=== PATIENT | female | born 1950 | race Caucasian/White ===

== ENCOUNTER 2024-09-17 09:06 | Outpatient (OUT) | payer MEDICARE, SELFPAY ==
[2024-09-17 09:45] LABS: Basophils Absolute Auto 0.1 10^3/uL (0.0-0.1); Basophils Percent Auto 0.6 % (0.2-2.0); Eosinophils Absolute Auto 0.3 10^3/uL (0.0-0.7); Hematocrit 43.5 % (36.0-48.0); Immature Granulocytes Abs Auto 0.03 10^3/uL (0.00-0.03); Immature Granulocytes Pct Auto 0.3 % (0.0-0.5); Lymphocytes Absolute Auto 1.7 10^3/uL (1.2-3.8); Lymphocytes Percent Auto 17.8 % (20.5-60.0); Mean Corpuscular HGB Conc 34.5 g/dL (29.9-35.2); Mean Corpuscular Hemoglobin 32.4 pg (26.7-34.0); Mean Platelet Volume 11.3 fL (9.5-13.5); Monocytes Absolute Auto 0.7 10^3/uL (0.3-0.8); Monocytes Percent Auto 7.2 % (1.7-12.0); Neutrophils Absolute Auto 6.7 10^3/uL (1.4-6.5); Neutrophils Percent Auto 71.1 % (43.0-75.0); Platelet Count 299 10^3/uL (150-450); Red Blood Count 4.63 10^6/uL (4.20-5.40); Red Cell Distribution Width 12.7 % (11.0-15.0); White Blood Count 9.5 10^3/uL (4.0-11.0)
[2024-09-17 11:09] LABS: Estimated Average Glucose 103 mg/dL; Glycohemoglobin A1C 5.2 % (4.5-6.2)
[2024-09-17 11:59] LABS: Alanine Aminotransferase 23 U/L (14-59); Albumin Level 3.7 g/dL (3.4-5.0); Alkaline Phosphatase 114 U/L (46-116); Anion Gap 11.2; Aspartate Amino Transferase 26 U/L (15-37); BUN Creatinine Ratio 14.6; Bilirubin Total 0.4 mg/dL (0.2-1.0); Calcium 9.6 mg/dL (8.5-10.1); Carbon Dioxide 30.2 mmol/L (21.0-32.0); Chloride 104 mmol/L (98-107); Chol HDL Ratio 2.6; Cholesterol 170 mg/dL (<=200); Estimated GFR (African America >60 (>=60 mL/min/1.73m^2); Estimated GFR (Non-African Ame 53 (>=60 mL/min/1.73m^2); Free T3 3.57 pg/mL (2.18-3.98); Globulin 3.8 g/dL; Glucose 94 mg/dL (74-106); HDL Cholesterol 66 mg/dL (40-60); Potassium 4.4 mmol/L (3.5-5.1); Sodium 141 mmol/L (136-145); Thyroid Stimulating Hormone 4.596 uIU/mL (0.358-3.740); Total Protein 7.5 g/dL (6.4-8.2); Triglycerides 123 mg/dL (<=150); VLDL CHOLESTEROL 24.6 mg/dL
[2024-09-18 04:07] LABS: Insulin 6.7 uIU/mL (2.6-24.9)
== END 2024-09-17 09:07 | disposition home or self-care (01) ==
LOC: LAB 09:11
PROVIDERS: Family Provider Family Medicine; PCP Nurse Practitioner Family; Visit Provider Nurse Practitioner Family
DX: E78.5 Hyperlipidemia, unspecified (principal); F17.200 Nicotine dependence, unspecified, uncomplicated; R73.09 Other abnormal glucose; D64.9 Anemia, unspecified; E03.9 Hypothyroidism, unspecified; E55.9 Vitamin D deficiency, unspecified
CPT/HCPCS: 36415; 80053; 80061; 82306; 83036; 83525; 83540; 84436; 84443; 84481; 85025

== ENCOUNTER 2024-12-24 12:35 | Emergency (ER) | payer MEDICARE, SELFPAY ==
[2024-12-24 12:36] VITALS: BP 162/76; PULSE 67; TEMP 36.6; O2SAT 97; BMI 21.2
--- NOTE | 2024-12-24 12:42 | PC.NURSE ---
hematoma noted to upper LFA. pt ROM n left shoulder, elbow, wrist and hand.
--- NOTE | 2024-12-24 12:44 | XR_ITS ---
The [address] [address] Patient Name: MJ CHA MRN: [id number] date: 1950 Sex: F Assigned Patient Location: ER Current Patient Location: Accession/Order Number: [id number] Exam Date: 12/24/2024 13:46 Report Date: 12/24/2024 13:49 At the request of: SABRA RIVERA MD Procedure: XR forearm LT 2V 2 views left forearm plain film COMPARISON: None HISTORY: Left forearm injury with bruising ACUTE FINDINGS: None DEGENERATIVE CHANGE: The first carpometacarpal degenerative change. SOFT TISSUE FINDINGS: Unremarkable JOINT EFFUSION: None POSTOP CHANGES: None BONY MINERALIZATION: Adequate XR/XR forearm LT 2V IMPRESSION: No acute displaced fracture Impression dictated by: Khris Moulton M.D. 12/24/2024 1:49 PM Dictation Location: [place] [address] Electronically authenticated by: [id number] Y Date: 12/24/2024 13:49
--- NOTE | 2024-12-24 12:46 | ED.GENADUL1 ---
HPI HPI - General Adult General Chief complaint: Extremity Injury, Upper Stated complaint: L ARM PAIN Time Seen by Provider: 12/24/24 12:42 Source: patient Mode of arrival: walk-in History of Present Illness HPI narrative: 74-year-old female presents for left forearm pain. She got up during the night to use the bathroom and hit her arm on the doorway. She points to an area just distal to the elbow. There shoulder elbow and wrist do not hurt. No other injury was sustained. She is right-handed. Radial pulse 2+ Related Data Allergies Allergy/AdvReac Type Severity Reaction Status Date / Time Penicillins Allergy Severe Unknown Verified 12/24/24 12:40 Review of Systems ROS Narrative A ten point review of systems is negative except as noted above. PFSH PFSH Social History Little interest or pleasure in doing things: not at all Feeling down, depressed, or hopeless: not at all Exam Narrative Exam Narrative: Nurses note and vital signs reviewed and patient is not hypoxic. General: The patient appears well and in no apparent distress. Patient is resting comfortably on cart. Skin: Warm, dry, no pallor noted. There is no rash noted. Head: Normocephalic, atraumatic Eye: Normal conjunctiva, no drainage Ears, Nose, Mouth, and Throat: oral mucosa is moist. Nares patent. Cardiovascular: Regular Rate and Rhythm Respiratory: Patient is in no distress, no accessory muscle use, lungs are clear to auscultation, no wheezing, rales or rhonchi Back: non-tender GI: Soft and nontender Musculoskeletal: Her left shoulder, elbow, and wrist are nontender and have full range of motion. She has a bruise distal to the left elbow and some tenderness in that area. Skin intact. Neurological: A&O, normal speech Psychiatric: Cooperative Constitutional Vital Signs, click to edit/add: Last Vital Signs Temp 97.8 F 12/24/24 12:36 Pulse 67 12/24/24 12:36 Resp 18 12/24/24 12:36 BP 162/76 H 12/24/24 12:36 Pulse Ox 97 12/24/24 12:36 O2 Del Method Room Air 12/24/24 12:36 Course Vital Signs Vital signs: Vital Signs Temperature 97.8 F 12/24/24 12:36 Pulse Rate 67 12/24/24 12:36 Respiratory Rate 18 12/24/24 12:36 Blood Pressure 162/76 H 12/24/24 12:36 Pulse Oximetry 97 12/24/24 12:36 Oxygen Delivery Method Room Air 12/24/24 12:36 Temperature 97.8 F 12/24/24 12:36 Pulse Rate 67 12/24/24 12:36 Respiratory Rate 18 12/24/24 12:36 Blood Pressure 162/76 H 12/24/24 12:36 Pulse Oximetry 97 12/24/24 12:36 Oxygen Delivery Method Room Air 12/24/24 12:36 Medical Decision Making MDM Narrative Medical decision making narrative: X-ray of the forearm on my interpretation shows no acute findings. She has no pain in the elbow. She was recommended ice and ibuprofen. Treatment diagnosis and follow-up were discussed with the patient. Differential Diagnosis Differential Diagnosis: Contusion, fracture Imaging Data X-ray left forearm: My impression: No acute findings Discharge Plan Discharge Chief Complaint: Extremity Injury, Upper Clinical Impression: Contusion of left forearm Patient Disposition: Home, Self-Care Time of Disposition Decision: 13:37 Condition: Good Mode of Transportation: Private Vehicle Print Language: Estonian Instructions: Contusion in Adults (ED) Referrals: VANESSA GREENFIELD [Primary Care Provider, Family Practice] - 1 week
[2024-12-24 13:46] VITALS: BP 162/42; PULSE 74; O2SAT 98
== END 2024-12-24 13:48 | disposition home or self-care (01) ==
PROVIDERS: Emergency Provider Emergency Medicine; Family Provider Family Medicine; PCP Nurse Practitioner Family
DX: S50.12XA Contusion of left forearm, initial encounter (principal); W22.01XA Walked into wall, initial encounter
CPT/HCPCS: 73090; 99283

== ENCOUNTER 2025-05-19 13:47 | Outpatient (OUT) | payer MEDICARE, SELFPAY ==
--- NOTE | 2025-05-19 13:57 | XR_ITS ---
The [address] [address] Patient Name: MJ CHA MRN: [id number] date: 1950 Sex: F Assigned Patient Location: [facility] Current Patient Location: Accession/Order Number: [id number] Exam Date: 05/19/2025 14:10 Report Date: 05/20/2025 09:09 At the request of: VANESSA GREENFIELD Procedure: XR hip RT 2V w/ pelvis RIGHT HIP WITH AP PELVIS - 3 views CLINICAL DATA: Right hip pain for the past 6 weeks following fall COMPARISON: None available AP view of the pelvis as well as AP and frog-lateral views of the right hip were obtained. No fracture or dislocation is identified. The hip joint spaces are maintained. There is no significant arthritic disease. The SI joints are intact. There is slight levoscoliotic curvature as well as degenerative change involving the lower imaged lumbar spine. No soft tissue abnormalities are present. Mild atherosclerotic disease is noted. XR/XR hip RT 2V w/ pelvis IMPRESSION: NO ACUTE BONY FINDINGS. Impression dictated by: Michelle Campos M.D. 05/20/2025 9:09 AM Dictation Location: [email or web address] Electronically authenticated by: [id number] Y Date: 05/20/2025 09:09
--- NOTE | 2025-05-19 13:57 | XR_ITS ---
The [place] [id number] Patient Name: MJ CHA MRN: [id number] date: 1950 Sex: F Assigned Patient Location: [facility] Current Patient Location: [facility] Accession/Order Number: [id number] Exam Date: 05/19/2025 14:10 Report Date: 05/19/2025 22:40 At the request of: VANESSA GREENFIELD Procedure: XR lumbar spine 2-3V 3 views of the lumbar spine INDICATION: Fall, paresthesias, right hip pain COMPARISON: None FINDINGS: Lumbar vertebral heights maintained. Severe disc space narrowing L3-L5. Moderate facet arthropathy notably L4-S1. Gqfw-rd-[id number] facet of L4. An evidence of to 3 mm anterolisthesis L3 on L4. Suspect minimal retrolisthesis L2 on L3 2. Otherwise no fracture or malalignment identified. Suture material projects over the left upper quadrant. There are vascular calcifications. XR/XR lumbar spine 2-3V Impression:: Degenerative changes without evidence acute osseous abnormality. Impression dictated by: Leonardo Cardozo M.D. 05/19/2025 10:40 PM Dictation Location: [place] [address] Electronically authenticated by: [id number] Y Date: 05/19/2025 22:40
== END 2025-05-19 13:48 | disposition home or self-care (01) ==
LOC: RAD 13:50
PROVIDERS: Family Provider Family Medicine; PCP Nurse Practitioner Family; Visit Provider Nurse Practitioner Family
DX: M25.551 Pain in right hip (principal); W19.XXXA Unspecified fall, initial encounter; R20.2 Paresthesia of skin; M51.369 Other intervertebral disc degeneration, lumbar region without mention of lumbar back pain or lower extremity pain
CPT/HCPCS: 72100; 73502